=== PATIENT | female | born 1955 | race Caucasian/White ===

== ENCOUNTER 2018-07-02 08:43 | Emergency (ER) | payer OTHER ==
[2018-07-02 09:00] VITALS: TEMP 98.3
[2018-07-02] MEDS ORDERED: KETOROLAC TROMETHAMINE INJ 60 MG/2 ML VIAL IM ONE (09:05)
--- NOTE | 2018-07-02 09:05 | ED.PDOC ---
History of Present Illness - General Chief Complaint: Trauma Stated Complaint: left rib area pain Time Seen by Provider: 07/02/18 09:00 Source: patient, RN notes reviewed Additional Information: 63 YEAR OLD FELL YESTERDAY EVENING WHILE TAKING A SADLE OFF HER HORSE ONTO THE LEFT ANTERIOR CHEST AND NOW HERE FOR PAIN THAT IS NOT GETTING ANY BETTER SHE HAS NO SHORTNESS OF BREATH NO HEMOPTYSIS - History of Present Illness Timing/Duration: 1 hour, 24 hours Severity: moderate Worsening Factors: nothing Associated Symptoms: chest pain Allergies/Adverse Reactions: Allergies NO KNOWN ALLERGY Allergy (Verified 07/02/18 09:00) Home Medications: Ambulatory Orders Acetamin W/Cod #3 Tab [Tylenol w/CODEINE #3] 1 ea PO Q6HR PRN #40 tab 07/02/18 BuPROPion XL [Wellbutrin XL] 150 mg PO DAILY 07/02/18 Fluoxetine HCl [PROzac] 20 mg PO DAILY 07/02/18 Omeprazole 40 mg PO DAILY 07/02/18 Review of Systems - Review of Systems Constitutional: States: no symptoms reported EENTM: States: no symptoms reported Respiratory: States: see HPI Cardiology: States: no symptoms reported Gastrointestinal/Abdominal: States: no symptoms reported Genitourinary: States: no symptoms reported Musculoskeletal: States: no symptoms reported Skin: States: no symptoms reported Neurological: States: no symptoms reported Endocrine: States: no symptoms reported Hematologic/Lymphatic: States: no symptoms reported Past Medical History (General) - Patient Medical History Hx of COPD: No Hx Cardiac Disorders: No Hx Hypertension: No Hx Diabetes: No Hx Cancer: No Hx Hepatitis C: No - Vaccination History Hx Tetanus, Diphtheria Vaccination: No Hx Influenza Vaccination: Yes Hx Pneumococcal Vaccination: No Immunizations Up to Date: No - Social History Hx Tobacco Use: No Hx Alcohol Use: No Hx Substance Use: No Hx Substance Use Treatment: No Hx Depression: No - Female History Patient is a Female of Child Bearing Age (10 -59 yrs old): No Family Medical History - Family History Mother Family History: No Known Living Status: Physical Exam - Physical Exam General Appearance: Alert, Comfortable Eye Exam: bilateral normal Ears, Nose, Throat: hearing grossly normal, normal ENT inspection, normal pharynx Neck: non-tender, full range of motion, supple Respiratory: chest non-tender, lungs clear, normal breath sounds, other - TENDER ON THE LEFT ANTERIOR CHEST WALL Cardiovascular/Chest: normal peripheral pulses, regular rate, rhythm, no edema Peripheral Pulses: radial,right: 2+ Gastrointestinal/Abdominal: normal bowel sounds, non tender Back Exam: normal inspection, no CVA tenderness, no vertebral tenderness Skin Exam: normal color, warm/dry Departure - Departure Clinical Impression: Contusion of rib Time of Disposition: 09:45 Disposition: Discharge to Home or Self Care Condition: Good Departure Forms: ED Discharge - Pt. Copy, Patient Portal Self Enrollment Instructions: DI for Trauma Diet: regular diet Activity: increase activity as tolerated, no exercise, no lifting Prescriptions: Acetamin W/Cod #3 Tab [Tylenol w/CODEINE #3] 1 ea PO Q6HR PRN #40 tab PRN Reason: Mild To Moderate Pain Home Medications: Ambulatory Orders Acetamin W/Cod #3 Tab [Tylenol w/CODEINE #3] 1 ea PO Q6HR PRN #40 tab 07/02/18 BuPROPion XL [Wellbutrin XL] 150 mg PO DAILY 07/02/18 Fluoxetine HCl [PROzac] 20 mg PO DAILY 07/02/18 Omeprazole 40 mg PO DAILY 07/02/18 Comments: PLEASE RETURN IF YOU DEVELOP CHEST PAIN OR DIFFICULTY BREATHING
[2018-07-02 09:58] VITALS: BP 136/61; O2SAT 99
--- NOTE | 2018-07-02 10:04 | RAD ---
EXAM DESCRIPTION: Ribs,Left 2 Views CLINICAL HISTORY: fall COMPARISON: None. TECHNIQUE: 2 views left FINDINGS: I see no bone joint or soft tissue abnormality. No fracturing is detected. IMPRESSION: Normal left shoulder Electronically signed by: Kelton Vasquez MD 07/02/2018 10:00 AM [facility]
== END 2018-07-02 09:57 | disposition home or self-care (01) ==
LOC: ER 08:43
DX: S20.212A Contusion of left front wall of thorax, initial encounter (principal); W18.39XA Other fall on same level, initial encounter; Y93.89 Activity, other specified; Y92.9 Unspecified place or not applicable
CPT/HCPCS: 71100; J1885

== ENCOUNTER 2018-07-03 09:40 | Emergency (ER) | payer OTHER ==
[2018-07-03] MEDS ORDERED: KETOROLAC TROMETHAMINE INJ 60 MG/2 ML VIAL IM ONE (10:08)
[2018-07-03 10:15] VITALS: BP 128/69; TEMP 97.8; O2SAT 97
--- NOTE | 2018-07-03 10:24 | ED.PDOC ---
History of Present Illness - General Chief Complaint: Back Pain or Injury Stated Complaint: fell on saddle horn yesterday Time Seen by Provider: 07/03/18 10:08 Source: patient Exam Limitations: no limitations - History of Present Illness Initial Comments: Patient comes in for continued severe pain L chest wall after falling on Friday evening. Patient was un saddeling a horse when she fell, landing on the saddle horn. She was seen here yesterday and xrays did not show rib fracture. Patient was given Toradol and Tylenol # 3 and the pain subsided but came back and is severe today. Tylenol # 3 would not work as as she has had gastric bypass she cannot take orally NSAIDS. She has no shortness of breath, has had several days of mild cough but it is not productive. Timing/Duration: other - since Friday evening Severity: severe Improving Factors: medication - Toradol in ER, rest Worsening Factors: movement, other - breathing Associated Symptoms: denies symptoms Allergies/Adverse Reactions: Allergies NO KNOWN ALLERGY Allergy (Verified 07/02/18 09:00) Home Medications: Ambulatory Orders Acetamin W/Cod #3 Tab [Tylenol w/CODEINE #3] 1 ea PO Q6HR PRN #40 tab 07/02/18 BuPROPion XL [Wellbutrin XL] 150 mg PO DAILY 07/02/18 Fluoxetine HCl [PROzac] 20 mg PO DAILY 07/02/18 Omeprazole 40 mg PO DAILY 07/02/18 Review of Systems - Review of Systems Constitutional: States: no symptoms reported. Denies: chills, fever, malaise EENTM: States: no symptoms reported. Denies: nose congestion, throat pain Respiratory: States: cough. Denies: orthopnea, short of breath, wheezing Cardiology: States: no symptoms reported. Denies: chest pain, edema, palpitations Gastrointestinal/Abdominal: States: no symptoms reported. Denies: abdominal pain, nausea Genitourinary: States: no symptoms reported Musculoskeletal: States: see HPI Skin: States: no symptoms reported Past Medical History (General) - Patient Medical History Hx of COPD: No Hx Cardiac Disorders: No Hx Hypertension: No Hx Thyroid Disease: No Hx Diabetes: No Hx Cancer: No Hx Hepatitis C: No Surgical History: other - Vaccination History Hx Tetanus, Diphtheria Vaccination: No Hx Influenza Vaccination: No Hx Pneumococcal Vaccination: No - Social History Hx Tobacco Use: No Hx Alcohol Use: No Hx Substance Use: No Hx Substance Use Treatment: No Hx Depression: No Family Medical History - Family History Mother Family History: No Known Living Status: Physical Exam - Physical Exam General Appearance: Alert, Anxious, Comfortable, No apparent distress Eye Exam: bilateral normal Ears, Nose, Throat: hearing grossly normal, normal ENT inspection Neck: non-tender Respiratory: chest non-tender, lungs clear, normal breath sounds Cardiovascular/Chest: normal peripheral pulses, regular rate, rhythm, no edema, no gallop, no murmur, other - no bruising or crepitus to chest wall ? swelling and pain over implant on the left breast Peripheral Pulses: radial,right: 2+, radial,left: 2+ Gastrointestinal/Abdominal: normal bowel sounds, non tender, soft Extremity: non-tender, normal inspection Neurologic: alert, oriented x 3 Progress - Results/Orders Results/Orders: Xray : no fracture explained to patient my concern that this may be a ruptured saline implant and if pain persists she should get MRI with her PCP. She voices understanding. Toradol works well and she has Voltaren gel at home that I have advised her to use. Increase Tylenol # 3 to 2 po QID prn that she already has and follow up as an out patient. Departure - Departure Clinical Impression: Contusion of rib Qualifiers: Encounter type: subsequent encounter Laterality: left Qualified Code(s): S20.212D - Contusion of left front wall of thorax, subsequent encounter Disposition: Discharge to Home or Self Care Condition: Good Departure Forms: ED Discharge - Pt. Copy, Patient Portal Self Enrollment Instructions: DI for Low Back Pain Home Medications: Ambulatory Orders Acetamin W/Cod #3 Tab [Tylenol w/CODEINE #3] 1 ea PO Q6HR PRN #40 tab 07/02/18 BuPROPion XL [Wellbutrin XL] 150 mg PO DAILY 07/02/18 Fluoxetine HCl [PROzac] 20 mg PO DAILY 07/02/18 Omeprazole 40 mg PO DAILY 07/02/18 Additional Instructions: follow up with PCP on Friday to discuss if MRI of breast implant is needed ok to increase to 2 po QID of the Tylenol # 3 and ok to use home Voltaren gel for pain as well.
--- NOTE | 2018-07-03 10:29 | RAD ---
Study: Frontal and oblique views of the ribs. Indication: pain after fall Comparison: None. Impression: No left-sided rib fracture identified. No left-sided pneumothorax identified. Electronically signed by: Tushar Denis MD 07/03/2018 10:[address] [facility]
== END 2018-07-03 10:54 | disposition home or self-care (01) ==
LOC: ER 09:40
DX: S20.212D Contusion of left front wall of thorax, subsequent encounter (principal); W01.198D Fall on same level from slipping, tripping and stumbling with subsequent striking against other object, subsequent encounter
CPT/HCPCS: 71101; J1885

== ENCOUNTER 2018-07-04 10:05 | Emergency (ER) | payer BC, OTHER ==
[2018-07-04] MEDS ORDERED: KETOROLAC TROMETHAMINE INJ 30 MG/ML VIAL IM ONE (10:32)
--- NOTE | 2018-07-04 10:35 | ED.PDOC ---
History of Present Illness - General Chief Complaint: General Stated Complaint: Pt complains of L Rib pain x 3 days Time Seen by Provider: 07/04/18 10:22 Source: patient Exam Limitations: no limitations - History of Present Illness Initial Comments: the patient is a 63-year-old female presenting to the emergency room secondary to left anterior chest wall pain. She has been seen here appropriately twice over the last 2 days secondary to the pain. She had fallen over on a saddle horn and injured her right anterior lower chest wall. 2 sets of rib series show no evidence of fracture, dislocation or pneumothorax. She is not having difficulty breathing. She does not have a productive cough. She is planning on traveling back home 8 hours today. The patient does have a history of gastric bypass and did receive 2 Toradol shots so far. She is wanting another here today. She is taking her Tylenol No. 3. Timing/Duration: other - days Improving Factors: medication Worsening Factors: movement Associated Symptoms: denies symptoms Allergies/Adverse Reactions: Allergies NO KNOWN ALLERGY Allergy (Verified 07/04/18 10:23) Home Medications: Ambulatory Orders Acetamin W/Cod #3 Tab [Tylenol w/CODEINE #3] 1 ea PO Q6HR PRN #40 tab 07/02/18 BuPROPion XL [Wellbutrin XL] 150 mg PO DAILY 07/02/18 Fluoxetine HCl [PROzac] 20 mg PO DAILY 07/02/18 Omeprazole 40 mg PO DAILY 07/02/18 Review of Systems - Review of Systems Constitutional: States: no symptoms reported EENTM: States: no symptoms reported Respiratory: States: no symptoms reported Cardiology: States: chest pain Gastrointestinal/Abdominal: States: no symptoms reported Genitourinary: States: no symptoms reported Musculoskeletal: States: see HPI Skin: States: no symptoms reported Neurological: States: no symptoms reported Endocrine: States: no symptoms reported All other Systems: No Change from Baseline Past Medical History (General) - Patient Medical History Hx of COPD: No Hx Cardiac Disorders: No Hx Hypertension: No Hx Thyroid Disease: No Hx Diabetes: No Hx Cancer: No Hx Hepatitis C: No - Vaccination History Hx Tetanus, Diphtheria Vaccination: No Hx Influenza Vaccination: No Hx Pneumococcal Vaccination: No - Social History Hx Tobacco Use: No Hx Alcohol Use: No Hx Substance Use: No Hx Substance Use Treatment: No Hx Depression: No Family Medical History - Family History Mother Family History: No Known Living Status: Physical Exam - Physical Exam General Appearance: Alert, Comfortable, No apparent distress Eye Exam: bilateral normal Ears, Nose, Throat: hearing grossly normal, normal pharynx Neck: full range of motion, supple Respiratory: lungs clear, normal breath sounds, no respiratory distress, no accessory muscle use, other - see history of present illness Cardiovascular/Chest: normal peripheral pulses, regular rate, rhythm, no edema Peripheral Pulses: radial,right: 2+, radial,left: 2+, dorsalis pedis,right: 2+, dorsalis pedis,left: 2+ Gastrointestinal/Abdominal: non tender, soft Rectal Exam: deferred Back Exam: normal inspection Extremity: normal range of motion, no pedal edema, no calf tenderness, normal capillary refill 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 The patient will be given 1 more dose of Toradol. She does understand that she cannot keep using this medication secondary to potential renal and gastric complications. I would recommend she double her omeprazole for the next week as she has had a gastric bypass in the past. She can continue using her Tylenol No. 3. Topical heat may also help reduce discomfort as well as topical lidocaine patches. She does need to take deep breaths to prevent atelectasis and reduce the likelihood of pneumonia formation. She has had 2 previous normal rib series on the left side in the last couple of days so we will not repeat that today. ER warnings were given. keep follow-up with primary care doctor otherwise. Departure - Departure Clinical Impression: Traumatic injury of chest wall Disposition: Discharge to Home or Self Care Condition: Fair Departure Forms: ED Discharge - Pt. Copy, Patient Portal Self Enrollment Instructions: Bruised Rib (DC) Diet: regular diet Activity: increase activity as tolerated Home Medications: Ambulatory Orders Acetamin W/Cod #3 Tab [Tylenol w/CODEINE #3] 1 ea PO Q6HR PRN #40 tab 07/02/18 BuPROPion XL [Wellbutrin XL] 150 mg PO DAILY 07/02/18 Fluoxetine HCl [PROzac] 20 mg PO DAILY 07/02/18 Omeprazole 40 mg PO DAILY 07/02/18 Additional Instructions: the patient is a 63-year-old female presenting to the emergency room secondary to left anterior chest wall pain secondary to trauma several days ago. The patient will be given 1 more dose of Toradol. She does understand that she cannot keep using this medication secondary to potential renal and gastric complications. I would recommend she double her omeprazole for the next week as she has had a gastric bypass in the past. She can continue using her Tylenol No. 3. Topical heat may also help reduce discomfort as well as topical lidocaine patches. She does need to take deep breaths to prevent atelectasis and reduce the likelihood of pneumonia formation. She has had 2 previous normal rib series on the left side in the last couple of days so we will not repeat that today. ER warnings were given. keep follow-up with primary care doctor otherwise.
[2018-07-04 10:54] VITALS: BP 130/68; TEMP 96.6; O2SAT 97
== END 2018-07-04 10:57 | disposition home or self-care (01) ==
LOC: ER 10:05
DX: S29.9XXD Unspecified injury of thorax, subsequent encounter (principal); W01.198D Fall on same level from slipping, tripping and stumbling with subsequent striking against other object, subsequent encounter